=== PATIENT | female | born 1955 | race Caucasian/White ===

== ENCOUNTER 2020-04-02 15:04 | Emergency (ER) | payer OTHER, BC ==
[2020-04-02 15:27] VITALS: BP 195/91; PULSE 79
[2020-04-02] MEDS ORDERED: HYDROmorphone 0.5 MG/0.5 ML Syringe IVPUSH ONE (15:35)
[2020-04-02] MEDS ORDERED: Sodium Chloride 0.9% 10 ML Syringe FLUSH PRN (15:35)
--- NOTE | 2020-04-02 15:47 | EDM.PDOC ---
ED HPI GENERAL MEDICAL PROBLEM - General Chief Complaint: Lower Extremity Injury/Pain Stated Complaint: R LEG PAIN Time Seen by Provider: 04/02/20 15:23 Source of Information: Reports: Patient, Family, RN Notes Reviewed - History of Present Illness INITIAL COMMENTS - FREE TEXT/NARRATIVE: 64 yr old female comes in with severe R posterior thigh discomfort. She was at work, in a crowded space leaning forward to reach for something and felt onset of sudden pain R posterior mid thigh. She continues with severe pain with any type of movement of RLE. Feels OK at rest with knee propped up. No hip or back pain. No other injury. Treatments HERD TESTER: Reports: Cold Therapy Right Posterior Leg Pain Score (Numeric/FACES): 10 - Related Data Allergies Allergy/AdvReac Type Severity Reaction Status Date / Time ibuprofen Allergy Swelling Verified 04/02/20 15:17 Home Meds: Home Meds Enalapril Maleate 20 mg PO DAILY 12/30/14 [History] Multivitamin [Multivitamins] 1 each PO DAILY 12/30/14 [History] Rosuvastatin [Crestor] 15 mg PO DAILY 12/30/14 [History] Zolpidem [Ambien] 10 mg PO BEDTIME PRN 12/30/14 [History] amLODIPine [Norvasc] 5 mg PO DAILY 12/30/14 [History] metFORMIN HCl [Metformin HCl] 1,000 mg PO BID 12/30/14 [History] Cholecalciferol (Vitamin D3) [Vitamin D3] 5,000 unit PO DAILY 03/17/15 [History] Fish Oil/Merlin-3 Fatty Acids [Fish Oil] 03/17/15 [History] traMADol [Ultram] 50 mg PO DAILY PRN 03/17/15 [History] Metoprolol Succinate [Toprol XL] 25 mg PO DAILY 06/24/15 [History] Ondansetron [Zofran ODT] 4 mg PO Q6H PRN #10 tab.dis 06/24/15 [Rx] Escitalopram [Lexapro] 20 mg PO DAILY 04/02/20 [History] glipiZIDE [Glipizide ER] 2.5 mg PO ASDIRECTED 04/02/20 [History] Past Medical History HEENT History: Reports: None Cardiovascular History: Reports: High Cholesterol, Hypertension 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: , Other (See Below) Other NETWORK OPERATIONS ANALYST History: 2 C-sections Musculoskeletal History: Reports: None Endocrine/Metabolic History: Reports: Diabetes, Type II - Past Surgical History HEENT Surgical History: Reports: Cataract Surgery Cardiovascular Surgical History: Reports: None Endocrine Surgical History: Reports: None Musculoskeletal Surgical History: Reports: Other (See Below) Other Musculoskeletal Surgeries/Procedures:: Right Knee Surgery Social & Family History - Family History HEENT: Reports: Cataract Other HEENT Family History: mother Cardiac: Reports: Bypass Other Cardiac Family History: father OBGYN: Reports: Endocrine/Metabolic: Reports: Diabetes, type II Other Endocrine/Metabolic Family History: Mother Oncologic: Reports: Breast Other Oncologic Family History: Sister - Tobacco Use Tobacco Use Status *Q: Former Tobacco User Years of Tobacco use: 20 Packs/Tins Daily: 1.5 Used Tobacco, but Quit: Yes Month/Year Tobacco Last Used: 03/1992 - Caffeine Use Caffeine Use: Reports: Coffee, Soda, Tea - Recreational Drug Use Recreational Drug Use: No Review of Systems - Review of Systems Review Of Systems: See Below Constitutional: Reports: No Symptoms Respiratory: Denies: Shortness of Breath, Pleuritic Chest Pain Cardiovascular: Denies: Chest Pain GI/Abdominal: Denies: Abdominal Pain, Nausea, Vomiting Musculoskeletal: Reports: Leg Pain Skin: Reports: No Symptoms Neurological: Reports: Difficulty Walking. Denies: Numbness, Tingling, Weakness ED EXAM, GENERAL - Physical Exam Exam: See Below General Appearance: Alert, Moderate Distress Head: Atraumatic Neck: Supple Respiratory/Chest: No Respiratory Distress, Lungs Clear Cardiovascular: Regular Rate, Rhythm Extremities: Leg Pain (There is tenderness of the R posterior mid thigh, no visible swelling, proximal distal post thigh nontender, hip and knee nontender) Neurological: No Motor/Sensory Deficits Skin Exam: Warm, Dry, Normal Color Course - Vital Signs Last Recorded V/S: Last Vital Signs Temp 99.1 F 04/02/20 15:18 Pulse 79 04/02/20 15:18 Resp 22 H 04/02/20 15:18 BP 195/91 H 04/02/20 15:18 Pulse Ox 100 04/02/20 15:18 - Orders/Labs/Meds Meds: Medications Discontinued Medications Generic Name Dose Route Start Last Admin Trade Name Freq PRN Reason Stop Dose Admin Hydromorphone HCl 0.5 mg 04/02/20 15:35 04/02/20 15:41 Dilaudid IVPUSH 04/02/20 15:36 0.5 mg ONETIME ONE Administration Sodium Chloride 10 ml 04/02/20 15:35 04/02/20 15:43 Saline Flush FLUSH 10 ml ASDIRECTED PRN Administration Keep Vein Open Departure - Departure Time of Disposition: 17:35 Disposition: Home, Self-Care 01 Condition: Fair Clinical Impression: Right hamstring muscle strain Qualifiers: Encounter type: initial encounter Qualified Code(s): S76.311A - Strain of muscle, fascia and tendon of the posterior muscle group at thigh level, right thigh, initial encounter - Discharge Information Instructions: Hamstring Strain Rehab-SportsMed Referrals: Sandee Diehl CHINCHILLA FARMER [Primary Care Provider] - Forms: ED Department Discharge, ED Return to Work/School Form Additional Instructions: Arik wrap R thigh, continue with rest, ice packs, elevation to help get the swelling down. Tylenol q 6 hr for pain or tylenol 500 mg with 1/2 tablet hydrocodone for more severe pain. Use walker. Follow up clinic later this week. Off work until you can walk with mild discomfort only, expect to take 1 to 2 weeks off work. Sepsis Event Note (ED) - Evaluation Sepsis Screening Result: No Definite Risk
--- NOTE | 2020-04-02 17:06 | MR ---
MRI right femur Technique: Multiple T2 fat-suppressed and T1 weighted axial, coronal and sagittal images were obtained. Findings: Mild edema is noted within portions of the vastus medialis and vastus lateralis muscle. Minimal edema is noted within the distal hamstring muscle. No evidence of muscle tear is seen. There is no bone marrow edema being seen. Small popliteal cyst and small effusion noted within the knee. Impression: 1. Mild areas of edema within the vastus medialis and vastus lateralis muscle as well as within the distal hamstring muscle. Findings are compatible with mild muscle strain. No muscle tear is identified. 2. Small joint effusion within the knee as well as small popliteal cyst. Diagnostic code #2
== END 2020-04-02 18:10 | disposition home or self-care (01) ==
LOC: JD.ED 15:04
DX: S76.311A Strain of muscle, fascia and tendon of the posterior muscle group at thigh level, right thigh, initial encounter (principal); E78.00 Pure hypercholesterolemia, unspecified; I10 Essential (primary) hypertension; E11.9 Type 2 diabetes mellitus without complications; Z87.891 Personal history of nicotine dependence; Z88.6 Allergy status to analgesic agent; Z79.899 Other long term (current) drug therapy; X58.XXXA Exposure to other specified factors, initial encounter; Y92.89 Other specified places as the place of occurrence of the external cause; Y99.0 Civilian activity done for income or pay
CPT/HCPCS: 73718-26-RT; 73718-RT; 96374; 99283; 99283-25; J1170

== ENCOUNTER 2020-10-14 16:01 | Emergency (ER) | payer BC ==
[2020-10-14] MEDS ORDERED: Sodium Chloride 0.9% 10 ML Syringe FLUSH PRN (16:38)
--- NOTE | 2020-10-14 16:53 | EDM.PDOC ---
ED HPI GENERAL MEDICAL PROBLEM - General Chief Complaint: Cardiovascular Problem Stated Complaint: [facility] Time Seen by Provider: 10/14/20 16:08 Source of Information: Reports: Patient History Limitations: Reports: No Limitations - History of Present Illness INITIAL COMMENTS - FREE TEXT/NARRATIVE: 65-year-old female presents the emergency department via [facility]. 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 She then went and sat down and suddenly became nauseated so she went to the bathroom and vomited twice. She states that she continued to have nausea but no further vomiting at that time. She then elected to check her blood pressure and states it was over 180 systolic. She then went to the local ambulance [facility] and had them check her blood pressure which they noted to be greater than 200 systolic. She was then transported to the emergency department. Patient states she does have a history of hypertension and approximately 1 month to 6 weeks ago saw her commercial finance analyst, , who started her on "extended release nitro". She states that her blood pressure has been up and down since then and has been taking prn doses of lisinopril 20mg. She states that at the time of her near syncopal episode she did not have any chest pain or pressure however she did report some shortness of breath. She does admit to having anxiety for which she takes as needed anxiety medication. She does have a history of Covid back in March or April of this year for which she states she has been in a brain fog ever since. She denies any recent fever, chills, abdominal pain or diarrhea. She denies any headache, cough or shortness of breath or flulike symptoms. She denies any urinary symptoms. - Related Data Allergies Allergy/AdvReac Type Severity Reaction Status Date / Time ibuprofen Allergy Swelling Verified 10/14/20 17:46 Home Meds: Home Meds Multivitamin [Multivitamins] 1 each PO DAILY 12/30/14 [History] Rosuvastatin [Crestor] 15 mg PO DAILY 12/30/14 [History] Zolpidem [Ambien] 10 mg PO BEDTIME PRN 12/30/14 [History] amLODIPine [Norvasc] 5 mg PO DAILY 12/30/14 [History] metFORMIN HCl [Metformin HCl] 1,000 mg PO BID 12/30/14 [History] Fish Oil/[place]-3 Fatty Acids [Fish Oil] 1 tab PO DAILY 03/17/15 [History] Escitalopram [Lexapro] 20 mg PO DAILY 04/02/20 [History] glipiZIDE [Glipizide ER] 2.5 mg PO ASDIRECTED 04/02/20 [History] Isosorbide Mononitrate [Isosorbide Mononitrate ER] 30 mg PO DAILY 10/14/20 [History] Montelukast [Singulair] 10 mg PO BID 10/14/20 [History] Omeprazole 20 mg PO DAILY 10/14/20 [History] aMILoride HCl [Amiloride HCl] 5 mg PO DAILY 10/14/20 [History] carvediloL [Carvedilol] 6.25 mg PO DAILY 10/14/20 [History] metFORMIN [Glucophage XR] 500 mg PO 1200 10/14/20 [History] Past Medical History HEENT History: Reports: None Cardiovascular History: Reports: High Cholesterol, Hypertension 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: , Other (See Below) Other HOUSE NURSE History: 2 C-sections Musculoskeletal History: Reports: None Endocrine/Metabolic History: Reports: Diabetes, Type II - Past Surgical History HEENT Surgical History: Reports: Cataract Surgery Cardiovascular Surgical History: Reports: None Endocrine Surgical History: Reports: None Musculoskeletal Surgical History: Reports: Other (See Below) Other Musculoskeletal Surgeries/Procedures:: Right Knee Surgery Social & Family History - Family History HEENT: Reports: Cataract Other HEENT Family History: mother Cardiac: Reports: Bypass Other Cardiac Family History: father OBGYN: Reports: Endocrine/Metabolic: Reports: Diabetes, type II Other Endocrine/Metabolic Family History: Mother Oncologic: Reports: Breast Other Oncologic Family History: Sister - Caffeine Use Caffeine Use: Reports: Coffee, Soda, Tea ED ROS GENERAL - Review of Systems Review Of Systems: Comprehensive ROS is negative, except as noted in HPI. ED EXAM, GENERAL - Physical Exam Exam: See Below Exam Limited By: Other (Patient is slightly confused however she is able to remember events of the day and current medications.) General Appearance: Alert, WD/WN, Mild Distress Eye Exam: Bilateral Eye: PERRL Ears: Normal External Exam, Hearing Grossly Normal Nose: Normal Inspection Throat/Mouth: Normal Inspection, Normal Lips, Normal Voice, No Airway Compromise Head: Atraumatic Neck: Normal Inspection, Supple Respiratory/Chest: No Respiratory Distress, Lungs Clear, Normal Breath Sounds, No Accessory Muscle Use, Chest Non-Tender Cardiovascular: Normal Peripheral Pulses, Regular Rate, Rhythm, No Edema, No Murmur Peripheral Pulses: 2+: Radial (L), Radial (R) GI/Abdominal: Normal Bowel Sounds, Soft, Non-Tender, No Distention (Female) Exam: Deferred Rectal (Female) Exam: Deferred Back Exam: Normal Inspection Extremities: Normal Inspection, Normal Range of Motion, Non-Tender, No Pedal Edema, Normal Capillary Refill Neurological: Alert, Oriented, Normal Cognition Psychiatric: Normal Affect, Normal Mood Skin Exam: Warm, Intact, Normal Color, No Rash, Diaphoretic Lymphatic: No Adenopathy #1 Interpretation EKG Date: 10/14/20 Time: 16:17 Rhythm: NSR Rate (Beats/Min): 69 Vida: Normal P-Wave: Present QRS: Normal ST-T: Normal QT: Normal EKG Interpretation Comments: Per Dr. Woods interpretation: Sinus rhythm at 69 bpm. Course - Vital Signs Text/Narrative:: As stated above patient did have an episode of diaphoresis, nausea, vomiting and shortness of breath that occurred while she was vacuuming today. She then proceeded [facility] the local ambulance [facility] and had her blood pressure checked and was subsequently transported here to the emergency department. Once in the emergency department the patient does have continued nausea. The patient does seem quite anxious upon my physical exam. Systolic blood pressure is 170. She states she has not taken her p.m. medications for blood pressure which she normally takes at about 4:30 in the afternoon. I have ordered for nursing staff to obtain her full medication list to evaluate. I have ordered an EKG, labs to include a CBC, CMP, magnesium, troponin, proBNP, TSH, D-dimer and a portable chest x-ray. Last Recorded V/S: Last Vital Signs Temp 98 F 10/14/20 17:20 Pulse 80 10/14/20 18:51 Resp 17 10/14/20 18:51 BP 166/84 H 10/14/20 18:51 Pulse Ox 99 10/14/20 18:51 - Orders/Labs/Meds Orders: Active Orders 24 hr Category Date Time Status EKG 12 Lead [EKG Documentation Completion] [RC] STAT Care 10/14/20 16:10 Active Chest 1V Frontal [CR] Stat Exams 10/14/20 16:38 Taken CORONAVIRUS COVID-19 DENISSE [MOLEC] Stat Lab 10/14/20 18:06 Received CULTURE URINE [MREF] Stat Lab 10/14/20 18:45 Received Sodium Chloride 0.9% [Normal Saline] 100 ml Med 10/14/20 18:00 Active IV ASDIRECTED Sodium Chloride 0.9% [Saline Flush] Med 10/14/20 18:00 Active 10 ml FLUSH ASDIRECTED Sodium Chloride 0.9% [Saline Flush] Med 10/14/20 16:38 Active 10 ml FLUSH ASDIRECTED PRN Saline Lock Insert [OM.PC] Stat Oth 10/14/20 16:38 Ordered Medication Orders Sodium Chloride (Normal Saline) 100 mls @ 60 mls/hr IV ASDIRECTED CAEASR Last Admin: 10/14/20 18:28 Dose: 60 mls/hr Documented by: PALMA Sodium Chloride (Sodium Chloride 0.9% 10 Ml Syringe) 10 ml FLUSH ASDIRECTED PRN PRN Reason: Keep Vein Open Last Admin: 10/14/20 16:44 Dose: 10 ml Documented by: FLORENTINO Sodium Chloride (Sodium Chloride 0.9% 10 Ml Syringe) 10 ml FLUSH ASDIRECTED CAESAR Last Admin: 10/14/20 18:28 Dose: 10 ml Documented by: PALMA Labs: Laboratory Tests 10/14/20 10/14/20 10/14/20 Range/Units 17:05 17:05 17:05 WBC 7.19 (3.98-10.04) K/mm3 RBC 4.17 (3.98-5.22) M/mm3 Hgb 12.1 (11.2-15.7) gm/dl Hct 34.9 (34.1-44.9) % MCV 83.7 D (79.4-94.8) fl MCH 29.0 (25.6-32.2) pg MCHC 34.7 (32.2-35.5) g/dl RDW Std Deviation 40.9 (36.4-46.3) fL Plt Count 313 (182-369) K/mm3 MPV 8.7 L (9.4-12.3) fl Neut % (Auto) 78.8 H (34.0-71.1) % Lymph % (Auto) 14.3 L (19.3-51.7) % [place] % (Auto) 5.4 (4.7-12.5) % Eos % (Auto) 1.0 (0.7-5.8) Baso % (Auto) 0.1 (0.1-1.2) % Neut # (Auto) 5.66 (1.56-6.13) K/mm3 Lymph # (Auto) 1.03 L (1.18-3.74) K/mm3 [place] # (Auto) 0.39 H (0.24-0.36) K/mm3 Eos # (Auto) 0.07 (0.04-0.36) K/mm3 Baso # (Auto) 0.01 (0.01-0.08) K/mm3 D-Dimer, Quantitative 0.96 H (0.19-0.50) mg/L Sodium 114 L* D (136-145) mEq/L Potassium 6.3 H* D (3.5-5.1) mEq/L Chloride 83 L D (98-107) mEq/L Carbon Dioxide 19 L (21-32) mEq/L Anion Gap 18.3 H (5-15) BUN 19 H (7-18) mg/dL Creatinine 0.8 (0.55-1.02) mg/dL Est Cr Clr Drug Dosing 58.77 mL/min Estimated GFR (MDRD) > 60 (>60) mL/min BUN/Creatinine Ratio 23.8 H (14-18) Glucose 164 H (70-99) mg/dL Calcium 9.2 (8.5-10.1) mg/dL Magnesium 1.6 L (1.8-2.4) mg/dL Total Bilirubin 0.4 (0.2-1.0) mg/dL AST 20 (15-37) U/L ALT 32 (14-59) U/L Alkaline Phosphatase 62 (46-116) U/L Troponin I < 0.017 (0.00-0.056) ng/mL NT-Pro-B Natriuret Pep (0-125) pg/mL Total Protein 7.5 (6.4-8.2) g/dl Albumin 4.3 (3.4-5.0) g/dl Globulin 3.2 gm/dL Albumin/Globulin Ratio 1.3 (1-2) TSH 3rd Generation 2.871 (0.358-3.74) uIU/mL Urine Color (Yellow) Urine Appearance (Clear) Urine pH (5.0-8.0) Ur Specific [place] (1.005-1.030) Urine Protein (Negative) Urine Glucose (UA) (Negative) Urine Ketones (Negative) Urine Occult Blood (Negative) Urine Nitrite (Negative) Urine Bilirubin (Negative) Urine Urobilinogen (0.2-1.0) Ur Leukocyte Esterase (Negative) Urine RBC (0-5) /hpf Urine WBC (0-5) /hpf Ur Squamous Epith Cells (0-5) /hpf Urine Bacteria (FEW) /hpf Urine Mucus (FEW) /hpf 10/14/20 10/14/20 Range/Units 17:05 18:45 WBC (3.98-10.04) K/mm3 RBC (3.98-5.22) M/mm3 Hgb (11.2-15.7) gm/dl Hct (34.1-44.9) % MCV (79.4-94.8) fl MCH (25.6-32.2) pg MCHC (32.2-35.5) g/dl RDW Std Deviation (36.4-46.3) fL Plt Count (182-369) K/mm3 MPV (9.4-12.3) fl Neut % (Auto) (34.0-71.1) % Lymph % (Auto) (19.3-51.7) % [place] % (Auto) (4.7-12.5) % Eos % (Auto) (0.7-5.8) Baso % (Auto) (0.1-1.2) % Neut # (Auto) (1.56-6.13) K/mm3 Lymph # (Auto) (1.18-3.74) K/mm3 [place] # (Auto) (0.24-0.36) K/mm3 Eos # (Auto) (0.04-0.36) K/mm3 Baso # (Auto) (0.01-0.08) K/mm3 D-Dimer, Quantitative (0.19-0.50) mg/L Sodium (136-145) mEq/L Potassium (3.5-5.1) mEq/L Chloride (98-107) mEq/L Carbon Dioxide (21-32) mEq/L Anion Gap (5-15) BUN (7-18) mg/dL Creatinine (0.55-1.02) mg/dL Est Cr Clr Drug Dosing mL/min Estimated GFR (MDRD) (>60) mL/min BUN/Creatinine Ratio (14-18) Glucose (70-99) mg/dL Calcium (8.5-10.1) mg/dL Magnesium (1.8-2.4) mg/dL Total Bilirubin (0.2-1.0) mg/dL AST (15-37) U/L ALT (14-59) U/L Alkaline Phosphatase (46-116) U/L Troponin I (0.00-0.056) ng/mL NT-Pro-B Natriuret Pep 46 (0-125) pg/mL Total Protein (6.4-8.2) g/dl Albumin (3.4-5.0) g/dl Globulin gm/dL Albumin/Globulin Ratio (1-2) TSH 3rd Generation (0.358-3.74) uIU/mL Urine Color Yellow (Yellow) Urine Appearance Clear (Clear) Urine pH 7.5 (5.0-8.0) Ur Specific [place] 1.015 (1.005-1.030) Urine Protein Negative (Negative) Urine Glucose (UA) Negative (Negative) Urine Ketones 2+ H (Negative) Urine Occult Blood Negative (Negative) Urine Nitrite Negative (Negative) Urine Bilirubin Negative (Negative) Urine Urobilinogen 0.2 (0.2-1.0) Ur Leukocyte Esterase Trace H (Negative) Urine RBC 0-5 (0-5) /hpf Urine WBC 5-10 H (0-5) /hpf Ur Squamous Epith Cells 0-5 (0-5) /hpf Urine Bacteria Few (FEW) /hpf Urine Mucus Few (FEW) /hpf Meds: Medications Generic Name Dose Route Start Last Admin Trade Name Freq PRN Reason Stop Dose Admin Sodium Chloride 100 mls @ 60 mls/hr 10/14/20 18:00 10/14/20 18:28 Normal Saline IV 60 mls/hr ASDIRECTED CAESAR Administration Sodium Chloride 10 ml 10/14/20 16:38 10/14/20 16:44 Sodium Chloride 0.9% 10 Ml Syringe FLUSH 10 ml ASDIRECTED PRN Administration Keep Vein Open Sodium Chloride 10 ml 10/14/20 18:00 10/14/20 18:28 Sodium Chloride 0.9% 10 Ml Syringe FLUSH 10 ml ASDIRECTED CAESAR Administration Discontinued Medications Generic Name Dose Route Start Last Admin Trade Name Hayden PRN Reason Stop Dose Admin Sodium Chloride 1,000 mls @ 999 mls/hr 10/14/20 17:53 10/14/20 18:01 Normal Saline IV 10/14/20 18:53 999 mls/hr ONETIME ONE Administration Iopamidol 100 ml 10/14/20 17:57 10/14/20 18:27 Iopamidol 755 Mg/Ml 100 Ml Bottle IVPUSH 10/14/20 17:58 100 ml ONETIME ONE Administration Iopamidol 50 ml 10/14/20 17:57 10/14/20 18:32 Iopamidol 755 Mg/Ml 50 Ml Bottle IVPUSH 10/14/20 17:58 Not Given ONETIME ONE - Re-Assessments/Exams Free Text/Narrative Re-Assessment/Exam: 10/14/20 17:25 Patient's blood pressure 143/79, heart rate is 69 sinus rhythm. 10/14/20 18:02 Hematology reveals a WBC of 7.19, hemoglobin 12.1, hematocrit 34.9, platelet count 313 Coagulation reveals a D-dimer of 0.96 Chemistry reveals a sodium of 114, potassium 6.3, chloride 83, carbon dioxide 19, anion gap 18.3, BUN 19, creatinine 0.8, GFR greater than 60, glucose 164, calcium 9.2, magnesium 1.6, troponin less than 0.017, proBNP 46, TSH 2.871 Patient's D-dimer is elevated so I ordered a CT of the chest to rule out PE. Consulted with Dr. Woods guarding the patient's lab work and he recommends the patient received a 1 L bolus of normal saline IV. Patient will need to be hospitalized due to the hyponatremia and hyperkalemia however we have no beds available at this hospital. Discussed the case with the patient and her and they request to be transferred to [facility] in [place]. Once I have the results of the CTA I will call [facility]. 10/14/20 18:05 Calcium corrected for serum sodium is 115 mEq/L 10/14/20 18:38 Nothing acute is appreciated on portable view of the chest. 10/14/20 19:[address] of the chest: Pulmonary arteries are well opacified. No filling defects are seen to indicate pulmonary embolism. Soft tissue abnormality is identified in the right side of the left atrium. This finding measures approximately 2.4 x 1.4 cm. This represents either thrombus or soft tissue mass. Thoracic aorta shows atherosclerotic change. A sending aorta is slightly ecstatic with AP dimension of 3.6 cm. There is coronary artery calcification being seen. No pericardial thickening is noted. Mediastinum shows no adenopathy. No axillary adenopathy is seen. Visualized upper abdominal structures show nothing acute. Lung window settings were reviewed. No acute parenchymal process is seen. Bone window settings were reviewed. No acute osseous abnormality is appreciated I have called [facility] in [place] and spoken with Dr. Gasca, specialist and she has accepted care of the patient in transfer. Patient will be transferred via ambulance. Departure - Departure Time of Disposition: 19:40 Disposition: DC/Tfer to [facility] 02 Reason for Transfer *Q: Other Condition: Fair Clinical Impression: Hyponatremia, Hyperkalemia Referrals: Sandee Diehl AUTOMATION QA ANALYST [Primary Care Provider] - Forms: ED Department Discharge Sepsis Event Note (ED) - Evaluation Sepsis Screening Result: No Definite Risk - Focused Exam Vital Signs: Vital Signs Temp Pulse Resp BP BP Pulse Ox 10/14/20 18:51 80 17 166/84 H 99 10/14/20 18:00 71 23 H 153/81 H 96 10/14/20 17:20 98 F 68 20 143/79 H 100 10/14/20 16:10 18 - My Orders Last 24 Hours: My Active Orders 10/14/20 16:10 EKG 12 Lead [EKG Documentation Completion] [RC] STAT 10/14/20 16:38 Chest 1V Frontal [CR] Stat Sodium Chloride 0.9% [Saline Flush] 10 ml FLUSH ASDIRECTED PRN Saline Lock Insert [OM.PC] Stat 10/14/20 18:00 Sodium Chloride 0.9% [Normal Saline] 100 ml IV ASDIRECTED Sodium Chloride 0.9% [Saline Flush] 10 ml FLUSH ASDIRECTED 10/14/20 18:06 CORONAVIRUS COVID-19 DENISSE [MOLEC] Stat 10/14/20 18:45 CULTURE URINE [MREF] Stat - Assessment/Plan Last 24 Hours: My Active Orders 10/14/20 16:10 EKG 12 Lead [EKG Documentation Completion] [RC] STAT 10/14/20 16:38 Chest 1V Frontal [CR] Stat Sodium Chloride 0.9% [Saline Flush] 10 ml FLUSH ASDIRECTED PRN Saline Lock Insert [OM.PC] Stat 10/14/20 18:00 Sodium Chloride 0.9% [Normal Saline] 100 ml IV ASDIRECTED Sodium Chloride 0.9% [Saline Flush] 10 ml FLUSH ASDIRECTED 10/14/20 18:06 CORONAVIRUS COVID-19 DENISSE [MOLEC] Stat 10/14/20 18:45 CULTURE URINE [MREF] Stat
[2020-10-14] MEDS ORDERED: Sodium Chloride 0.9% 1,000 ML IV ONE (17:53)
[2020-10-14] MEDS ORDERED: Iopamidol 755 Mg/ML 100 ML Bottle IVPUSH ONE (17:57)
[2020-10-14] MEDS ORDERED: Iopamidol 755 MG/ML 50 ML Bottle IVPUSH ONE (17:57)
[2020-10-14] MEDS ORDERED: Sodium Chloride 0.9% 100 ML IV SCH (18:00)
[2020-10-14] MEDS ORDERED: Sodium Chloride 0.9% 10 ML Syringe FLUSH SCH (18:00)
--- NOTE | 2020-10-14 18:54 | CT ---
CT chest Technique: Multiple axial sections through the chest were obtained. Intravenous contrast was utilized. Study has been performed as a pulmonary angiogram protocol. Comparison: No prior chest CT is available, prior chest x-ray of 06/24/15 is available. Findings: Pulmonary arteries are well opacified. No filling defects are seen to indicate pulmonary embolism. Soft tissue abnormality is identified within the right side of the left atrium. This finding measures approximately 2.4 x 1.4 cm. This represent either a thrombus or soft tissue mass. Thoracic aorta shows atherosclerotic change. Ascending aorta is slightly ectatic with AP dimension 3.6 cm. There is coronary artery calcification being seen. No pericardial thickening is noted. Mediastinum shows no adenopathy. No axillary adenopathy is seen. Visualized upper abdominal structures show nothing acute. Lung window settings were reviewed. No acute parenchymal process is seen. Bone window settings were reviewed. No acute osseous abnormality is appreciated. Impression: 1. Finding within the right side of the left atrium measuring 2.4 x 1.4 cm. This represents either a thrombus or soft tissue mass. Transesophageal echocardiogram could be considered to further evaluate. 2. No findings of pulmonary embolism. 3. Coronary artery calcification is noted. Ectasia of the ascending aorta is noted. 4. No acute parenchymal process is seen within either lung. Diagnostic code #5
[2020-10-14 19:32] VITALS: BP 173/89; PULSE 81
--- NOTE | 2020-10-15 09:04 | CR ---
Chest: Portable view of the chest was obtained. Comparison: Prior chest x-ray of 06/24/15. Heart size and mediastinum are within normal limits. Lungs are clear with no acute parenchymal change. No acute osseous abnormality is appreciated. Impression: 1. Nothing acute is seen on portable chest x-ray. Diagnostic code #1
== END 2020-10-14 19:44 ==
LOC: JD.ED 16:01
DX: E87.1 Hypo-osmolality and hyponatremia (principal); E87.5 Hyperkalemia; I10 Essential (primary) hypertension; E11.8 Type 2 diabetes mellitus with unspecified complications; E78.00 Pure hypercholesterolemia, unspecified; Z88.6 Allergy status to analgesic agent; Z20.822 Contact with and (suspected) exposure to COVID-19
CPT/HCPCS: 36415; 71045; 71275; 80053; 81001; 83735; 83880; 84443; 84484; 85025; 85379; 87086; 87635; 93005; 99285; J7030; Q9967; 93010; U0002

== ENCOUNTER 2020-11-06 09:13 | Emergency (ER) | payer BC ==
[2020-11-06] MEDS ORDERED: Sodium Chloride 0.9% 10 ML Syringe FLUSH PRN ×2 (09:37→11:36)
[2020-11-06] MEDS ORDERED: LORazepam 0.5 MG Tab PO ONE (11:17)
[2020-11-06] MEDS ORDERED: Iopamidol 755 Mg/ML 100 ML Bottle IVPUSH ONE (11:36)
[2020-11-06] MEDS ORDERED: Sodium Chloride 0.9% 100 ML IV SCH (11:45)
--- NOTE | 2020-11-06 12:29 | EDM.PDOC ---
ED HPI GENERAL MEDICAL PROBLEM - General Chief Complaint: General Stated Complaint: PASCUAL GUERRA Time Seen by Provider: 11/06/20 09:16 Source of Information: Reports: Patient, EMS, Family History Limitations: Reports: No Limitations - History of Present Illness INITIAL COMMENTS - FREE TEXT/NARRATIVE: The patient presents by [facility] for confusion, shortness of breath and hallucinations. 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 She was sent to [facility] and had surgery done 1 week ago. She was discharged home on oxygen at 3L. She was not on oxygen before the surgery. She had some trouble with her CPAP through the night and took her oxygen off. She was found this morning in another room in the house and had a trail of cereal. She was trying to get a bowl of cereal. She was confused and was wondering why the children were not helping. There are no children in the house. She also was wondering why there was a dog in the house. They do not have a dog. She was also popping bubbles that were not there last night. EMS said her oxygen saturations were low in the 80s and put her on some oxygen. She is doing better on the oxygen. She has no fever, chills, cough, abdominal pain, nausea or vomiting. She does have chest pain when she coughs. She has some swelling in her legs. She was just discharged form the hospital 2 days ago. Onset: Gradual Duration: Day(s): (yesterday) Location: Reports: Chest Quality: Reports: Sharp Severity: Moderate Improves with: Reports: Immobilization Worsens with: Reports: Other (cough) Associated Symptoms: Reports: Chest Pain, Cough, Shortness of Breath. Denies: Fever/Chills, Headaches, Nausea/Vomiting Middle Chest Pain Score (Numeric/FACES): 7 - Related Data Allergies Allergy/AdvReac Type Severity Reaction Status Date / Time ibuprofen Allergy Swelling Verified 10/14/20 17:46 metoprolol Allergy Edema Verified 11/06/20 09:41 Home Meds: Home Meds Multivitamin [Multivitamins] 1 each PO DAILY 12/30/14 [History] Rosuvastatin [Crestor] 15 mg PO DAILY 12/30/14 [History] Zolpidem [Ambien] 10 mg PO BEDTIME PRN 12/30/14 [History] amLODIPine [Norvasc] 5 mg PO DAILY 12/30/14 [History] metFORMIN HCl [Metformin HCl] 1,000 mg PO BID 12/30/14 [History] Fish Oil/Cornelius-3 Fatty Acids [Fish Oil] 1 tab PO DAILY 03/17/15 [History] Escitalopram [Lexapro] 20 mg PO DAILY 04/02/20 [History] glipiZIDE [Glipizide ER] 2.5 mg PO ASDIRECTED 04/02/20 [History] Isosorbide Mononitrate [Isosorbide Mononitrate ER] 30 mg PO DAILY 10/14/20 [History] Montelukast [Singulair] 10 mg PO BID 10/14/20 [History] Omeprazole 20 mg PO DAILY 10/14/20 [History] aMILoride HCl [Amiloride HCl] 5 mg PO DAILY 10/14/20 [History] carvediloL [Carvedilol] 6.25 mg PO DAILY 10/14/20 [History] metFORMIN [Glucophage XR] 500 mg PO 1200 10/14/20 [History] Past Medical History HEENT History: Reports: None Cardiovascular History: Reports: High Cholesterol, Hypertension 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: , Other (See Below) Other FLEET MAINTENANCE MANAGER History: 2 C-sections Musculoskeletal History: Reports: None Neurological History: Reports: TIA Other Neuro History: mini stroke 3 years ago Psychiatric History: Reports: None Endocrine/Metabolic History: Reports: Diabetes, Type II Hematologic History: Reports: Iron Deficiency - Past Surgical History HEENT Surgical History: Reports: Cataract Surgery Cardiovascular Surgical History: Reports: Other (See Below) Other Cardiovascular Surgeries/Procedures: 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 GI Surgical History: Reports: Appendectomy Endocrine Surgical History: Reports: None Musculoskeletal Surgical History: Reports: Other (See Below) Other Musculoskeletal Surgeries/Procedures:: Right Knee Surgery Social & Family History - Family History HEENT: Reports: Cataract Other HEENT Family History: mother Cardiac: Reports: Bypass Other Cardiac Family History: father OBGYN: Reports: Endocrine/Metabolic: Reports: Diabetes, type II Other Endocrine/Metabolic Family History: Mother Oncologic: Reports: Breast Other Oncologic Family History: Sister - Tobacco Use Tobacco Use Status *Q: Never Tobacco User - Caffeine Use Caffeine Use: Reports: None - Recreational Drug Use Recreational Drug Use: No ED ROS GENERAL - Review of Systems Review Of Systems: See Below Constitutional: Reports: No Symptoms HEENT: Reports: No Symptoms Respiratory: Reports: Shortness of Breath, Cough Cardiovascular: Reports: Chest Pain Endocrine: Reports: No Symptoms GI/Abdominal: Reports: No Symptoms : Reports: No Symptoms Musculoskeletal: Reports: No Symptoms ED EXAM, GENERAL - Physical Exam Exam: See Below Exam Limited By: No Limitations General Appearance: Alert, No Apparent Distress Ears: Normal External Exam Nose: Normal Inspection Head: Atraumatic, Normocephalic Neck: Normal Inspection, Other (Scar through the middle of the chest. There is no erythema, edema, or drainage.) Respiratory/Chest: No Respiratory Distress, Lungs Clear, Normal Breath Sounds Cardiovascular: Regular Rate, Rhythm, No Edema, No Murmur GI/Abdominal: Soft, Non-Tender, No Organomegaly, No Mass Back Exam: Normal Inspection Extremities: Normal Inspection #1 Interpretation EKG Date: 11/06/20 Time: 09:50 Rhythm: Other (sinus tachycardia) Rate (Beats/Min): 119 [place]: Normal P-Wave: Present QRS: Normal ST-T: Normal QT: Normal Course - Vital Signs Last Recorded V/S: Last Vital Signs Temp 97.4 F 11/06/20 09:16 Pulse 120 H 11/06/20 09:16 Resp 24 H 11/06/20 09:16 BP 173/103 H 11/06/20 09:16 Pulse Ox 94 L 11/06/20 09:16 - Orders/Labs/Meds Orders: Active Orders 24 hr Category Date Time Status Cardiac Monitoring [RC] . DIRECTED Care 11/06/20 09:37 Active Oxygen Therapy [RC] PRN Care 11/06/20 09:37 Active Peripheral IV Care [RC] . DIRECTED Care 11/06/20 09:38 Active Ang Chest [CT] Stat Exams 11/06/20 11:27 Taken Chest 1V Frontal [CR] Stat Exams 11/06/20 09:38 Taken Head wo Cont [CT] Stat Exams 11/06/20 11:26 Taken BLOOD CULTURE [MREF] Stat Lab 11/06/20 10:16 Received BLOOD CULTURE [MREF] Stat Lab 11/06/20 10:26 Received Sodium Chloride 0.9% [Normal Saline] 100 ml Med 11/06/20 11:45 Active IV ASDIRECTED Sodium Chloride 0.9% [Saline Flush] Med 11/06/20 09:37 Active 10 ml FLUSH ASDIRECTED PRN Sodium Chloride 0.9% [Saline Flush] Med 11/06/20 11:36 Active 10 ml FLUSH ONETIME PRN Blood Culture x2 Reflex Set [OM.PC] Stat Ot 11/06/20 09:58 Ordered Peripheral IV Insertion Adult [OM.PC] Stat Ot 11/06/20 09:37 Ordered Medication Orders Sodium Chloride (Normal Saline) 100 mls @ 60 mls/hr IV ASDIRECTED CAESAR Last Admin: 11/06/20 12:21 Dose: 60 mls/hr Documented by: DILAN Sodium Chloride (Sodium Chloride 0.9% 10 Ml Syringe) 10 ml FLUSH ASDIRECTED PRN PRN Reason: Keep Vein Open Last Admin: 11/06/20 10:17 Dose: 10 ml Documented by: RADHA Sodium Chloride (Sodium Chloride 0.9% 10 Ml Syringe) 10 ml FLUSH ONETIME PRN PRN Reason: Keep Vein Open Last Admin: 11/06/20 12:21 Dose: 10 ml Documented by: DILAN Labs: Laboratory Tests 11/06/20 11/06/20 11/06/20 Range/Units 09:37 10:13 10:16 WBC 9.56 (3.98-10.04) K/mm3 RBC 2.87 L (3.98-5.22) M/mm3 Hgb 8.3 L D (11.2-15.7) gm/dl Hct 27.2 L (34.1-44.9) % MCV 94.8 D (79.4-94.8) fl MCH 28.9 (25.6-32.2) pg MCHC 30.5 L (32.2-35.5) g/dl RDW Std Deviation 48.0 H (36.4-46.3) fL Plt Count 364 (182-369) K/mm3 MPV 8.7 L (9.4-12.3) fl Neut % (Auto) 82.5 H (34.0-71.1) % Lymph % (Auto) 10.8 L (19.3-51.7) % [place] % (Auto) 6.0 (4.7-12.5) % Eos % (Auto) 0.1 L (0.7-5.8) Baso % (Auto) 0.1 (0.1-1.2) % Neut # (Auto) 7.89 H (1.56-6.13) K/mm3 Lymph # (Auto) 1.03 L (1.18-3.74) K/mm3 [place] # (Auto) 0.57 H (0.24-0.36) K/mm3 Eos # (Auto) 0.01 L (0.04-0.36) K/mm3 Baso # (Auto) 0.01 (0.01-0.08) K/mm3 PT (9.7-12.0) SECONDS INR APTT (21.7-31.4) SECONDS Puncture Site ABG pH (7.35-7.45) ABG pCO2 (35.0-45.0) mmHg ABG pO2 (80.0-100.0) mmHg ABG HCO3 (22.0-26.0) meq/L ABG O2 Saturation (96.0-97.0) % ABG Base Excess (-2-2.0) Prakash Test A-a Gradient mmHg O2 Delivery Device Oxygen Flow Rate FiO2 (21.00-100.00) % Sodium (136-145) mEq/L Potassium (3.5-5.1) mEq/L Chloride (98-107) mEq/L Carbon Dioxide (21-32) mEq/L Anion Gap (5-15) BUN (7-18) mg/dL Creatinine (0.55-1.02) mg/dL Est Cr Clr Drug Dosing mL/min Estimated GFR (MDRD) (>60) mL/min BUN/Creatinine Ratio (14-18) Glucose (70-99) mg/dL Serum Osmolality (280-300) mosm/kg Lactic Acid (0.4-2.0) mmol/L Calcium (8.5-10.1) mg/dL Magnesium (1.8-2.4) mg/dL Total Bilirubin (0.2-1.0) mg/dL AST (15-37) U/L ALT (14-59) U/L Alkaline Phosphatase (46-116) U/L Troponin I (0.00-0.056) ng/mL C-Reactive Protein (<1.0) mg/dL NT-Pro-B Natriuret Pep (0-125) pg/mL Total Protein (6.4-8.2) g/dl Albumin (3.4-5.0) g/dl Globulin gm/dL Albumin/Globulin Ratio (1-2) Urine Color Yellow (Yellow) Urine Appearance Clear (Clear) Urine pH 6.0 (5.0-8.0) Ur Specific Eva 1.015 (1.005-1.030) Urine Protein Negative (Negative) Urine Glucose (UA) 3+ H (Negative) Urine Ketones Negative (Negative) Urine Occult Blood Negative (Negative) Urine Nitrite Negative (Negative) Urine Bilirubin Negative (Negative) Urine Urobilinogen 0.2 (0.2-1.0) Ur Leukocyte Esterase Negative (Negative) Urine RBC 0-5 (0-5) /hpf Urine WBC Not seen (0-5) /hpf Ur Squamous Epith Cells 0-5 (0-5) /hpf Urine Bacteria Rare (FEW) /hpf Urine Mucus Not seen (FEW) /hpf Ketones (0.0-0.3) mM SARS-CoV-2 RNA (DENISSE) Negative (NEGATIVE) 11/06/20 11/06/20 11/06/20 Range/Units 10:16 10:16 10:16 WBC (3.98-10.04) K/mm3 RBC (3.98-5.22) M/mm3 Hgb (11.2-15.7) gm/dl Hct (34.1-44.9) % MCV (79.4-94.8) fl MCH (25.6-32.2) pg MCHC (32.2-35.5) g/dl RDW Std Deviation (36.4-46.3) fL Plt Count (182-369) K/mm3 MPV (9.4-12.3) fl Neut % (Auto) (34.0-71.1) % Lymph % (Auto) (19.3-51.7) % [place] % (Auto) (4.7-12.5) % Eos % (Auto) (0.7-5.8) Baso % (Auto) (0.1-1.2) % Neut # (Auto) (1.56-6.13) K/mm3 Lymph # (Auto) (1.18-3.74) K/mm3 [place] # (Auto) (0.24-0.36) K/mm3 Eos # (Auto) (0.04-0.36) K/mm3 Baso # (Auto) (0.01-0.08) K/mm3 PT 10.8 (9.7-12.0) SECONDS INR 1.01 APTT 26.2 (21.7-31.4) SECONDS Puncture Site ABG pH (7.35-7.45) ABG pCO2 (35.0-45.0) mmHg ABG pO2 (80.0-100.0) mmHg ABG HCO3 (22.0-26.0) meq/L ABG O2 Saturation (96.0-97.0) % ABG Base Excess (-2-2.0) Prakash Test A-a Gradient mmHg O2 Delivery Device Oxygen Flow Rate FiO2 (21.00-100.00) % Sodium 136 (136-145) mEq/L Potassium 4.5 (3.5-5.1) mEq/L Chloride 100 (98-107) mEq/L Carbon Dioxide 23 (21-32) mEq/L Anion Gap 17.5 H (5-15) BUN 12 (7-18) mg/dL Creatinine 1.0 (0.55-1.02) mg/dL Est Cr Clr Drug Dosing 47.01 mL/min Estimated GFR (MDRD) 56 (>60) mL/min BUN/Creatinine Ratio 12.0 L (14-18) Glucose 318 H (70-99) mg/dL Serum Osmolality 291 (280-300) mosm/kg Lactic Acid (0.4-2.0) mmol/L Calcium 8.8 (8.5-10.1) mg/dL Magnesium 1.5 L (1.8-2.4) mg/dL Total Bilirubin 0.3 (0.2-1.0) mg/dL AST 27 (15-37) U/L ALT 48 (14-59) U/L Alkaline Phosphatase 121 H (46-116) U/L Troponin I 0.365 H* (0.00-0.056) ng/mL C-Reactive Protein 3.6 H* (<1.0) mg/dL NT-Pro-B Natriuret Pep 2816 H (0-125) pg/mL Total Protein 6.5 (6.4-8.2) g/dl Albumin 3.2 L (3.4-5.0) g/dl Globulin 3.3 gm/dL Albumin/Globulin Ratio 1.0 (1-2) Urine Color (Yellow) Urine Appearance (Clear) Urine pH (5.0-8.0) Ur Specific Eva (1.005-1.030) Urine Protein (Negative) Urine Glucose (UA) (Negative) Urine Ketones (Negative) Urine Occult Blood (Negative) Urine Nitrite (Negative) Urine Bilirubin (Negative) Urine Urobilinogen (0.2-1.0) Ur Leukocyte Esterase (Negative) Urine RBC (0-5) /hpf Urine WBC (0-5) /hpf Ur Squamous Epith Cells (0-5) /hpf Urine Bacteria (FEW) /hpf Urine Mucus (FEW) /hpf Ketones (0.0-0.3) mM SARS-CoV-2 RNA (DENISSE) (NEGATIVE) 11/06/20 11/06/20 11/06/20 Range/Units 10:16 10:16 10:38 WBC (3.98-10.04) K/mm3 RBC (3.98-5.22) M/mm3 Hgb (11.2-15.7) gm/dl Hct (34.1-44.9) % MCV (79.4-94.8) fl MCH (25.6-32.2) pg MCHC (32.2-35.5) g/dl RDW Std Deviation (36.4-46.3) fL Plt Count (182-369) K/mm3 MPV (9.4-12.3) fl Neut % (Auto) (34.0-71.1) % Lymph % (Auto) (19.3-51.7) % [place] % (Auto) (4.7-12.5) % Eos % (Auto) (0.7-5.8) Baso % (Auto) (0.1-1.2) % Neut # (Auto) (1.56-6.13) K/mm3 Lymph # (Auto) (1.18-3.74) K/mm3 [place] # (Auto) (0.24-0.36) K/mm3 Eos # (Auto) (0.04-0.36) K/mm3 Baso # (Auto) (0.01-0.08) K/mm3 PT (9.7-12.0) SECONDS INR APTT (21.7-31.4) SECONDS Puncture Site Rt radial ABG pH 7.48 H (7.35-7.45) ABG pCO2 28.5 L (35.0-45.0) mmHg ABG pO2 60.0 L (80.0-100.0) mmHg ABG HCO3 20.9 L (22.0-26.0) meq/L ABG O2 Saturation 91.3 L (96.0-97.0) % ABG Base Excess -1.8 (-2-2.0) Prakash Test Positive A-a Gradient 119 mmHg O2 Delivery Device Nasal cannula Oxygen Flow Rate 2.5 FiO2 30.00 (21.00-100.00) % Sodium (136-145) mEq/L Potassium (3.5-5.1) mEq/L Chloride (98-107) mEq/L Carbon Dioxide (21-32) mEq/L Anion Gap (5-15) BUN (7-18) mg/dL Creatinine (0.55-1.02) mg/dL Est Cr Clr Drug Dosing mL/min Estimated GFR (MDRD) (>60) mL/min BUN/Creatinine Ratio (14-18) Glucose (70-99) mg/dL Serum Osmolality (280-300) mosm/kg Lactic Acid 3.2 H* (0.4-2.0) mmol/L Calcium (8.5-10.1) mg/dL Magnesium (1.8-2.4) mg/dL Total Bilirubin (0.2-1.0) mg/dL AST (15-37) U/L ALT (14-59) U/L Alkaline Phosphatase (46-116) U/L Troponin I (0.00-0.056) ng/mL C-Reactive Protein (<1.0) mg/dL NT-Pro-B Natriuret Pep (0-125) pg/mL Total Protein (6.4-8.2) g/dl Albumin (3.4-5.0) g/dl Globulin gm/dL Albumin/Globulin Ratio (1-2) Urine Color (Yellow) Urine Appearance (Clear) Urine pH (5.0-8.0) Ur Specific Eva (1.005-1.030) Urine Protein (Negative) Urine Glucose (UA) (Negative) Urine Ketones (Negative) Urine Occult Blood (Negative) Urine Nitrite (Negative) Urine Bilirubin (Negative) Urine Urobilinogen (0.2-1.0) Ur Leukocyte Esterase (Negative) Urine RBC (0-5) /hpf Urine WBC (0-5) /hpf Ur Squamous Epith Cells (0-5) /hpf Urine Bacteria (FEW) /hpf Urine Mucus (FEW) /hpf Ketones 0.10 (0.0-0.3) mM SARS-CoV-2 RNA (DENISSE) (NEGATIVE) 11/06/20 Range/Units 13:16 WBC (3.98-10.04) K/mm3 RBC (3.98-5.22) M/mm3 Hgb (11.2-15.7) gm/dl Hct (34.1-44.9) % MCV (79.4-94.8) fl MCH (25.6-32.2) pg MCHC (32.2-35.5) g/dl RDW Std Deviation (36.4-46.3) fL Plt Count (182-369) K/mm3 MPV (9.4-12.3) fl Neut % (Auto) (34.0-71.1) % Lymph % (Auto) (19.3-51.7) % [place] % (Auto) (4.7-12.5) % Eos % (Auto) (0.7-5.8) Baso % (Auto) (0.1-1.2) % Neut # (Auto) (1.56-6.13) K/mm3 Lymph # (Auto) (1.18-3.74) K/mm3 [place] # (Auto) (0.24-0.36) K/mm3 Eos # (Auto) (0.04-0.36) K/mm3 Baso # (Auto) (0.01-0.08) K/mm3 PT (9.7-12.0) SECONDS INR APTT (21.7-31.4) SECONDS Puncture Site ABG pH (7.35-7.45) ABG pCO2 (35.0-45.0) mmHg ABG pO2 (80.0-100.0) mmHg ABG HCO3 (22.0-26.0) meq/L ABG O2 Saturation (96.0-97.0) % ABG Base Excess (-2-2.0) Prakash Test A-a Gradient mmHg O2 Delivery Device Oxygen Flow Rate FiO2 (21.00-100.00) % Sodium (136-145) mEq/L Potassium (3.5-5.1) mEq/L Chloride (98-107) mEq/L Carbon Dioxide (21-32) mEq/L Anion Gap (5-15) BUN (7-18) mg/dL Creatinine (0.55-1.02) mg/dL Est Cr Clr Drug Dosing mL/min Estimated GFR (MDRD) (>60) mL/min BUN/Creatinine Ratio (14-18) Glucose (70-99) mg/dL Serum Osmolality (280-300) mosm/kg Lactic Acid 2.4 H* (0.4-2.0) mmol/L Calcium (8.5-10.1) mg/dL Magnesium (1.8-2.4) mg/dL Total Bilirubin (0.2-1.0) mg/dL AST (15-37) U/L ALT (14-59) U/L Alkaline Phosphatase (46-116) U/L Troponin I (0.00-0.056) ng/mL C-Reactive Protein (<1.0) mg/dL NT-Pro-B Natriuret Pep (0-125) pg/mL Total Protein (6.4-8.2) g/dl Albumin (3.4-5.0) g/dl Globulin gm/dL Albumin/Globulin Ratio (1-2) Urine Color (Yellow) Urine Appearance (Clear) Urine pH (5.0-8.0) Ur Specific Eva (1.005-1.030) Urine Protein (Negative) Urine Glucose (UA) (Negative) Urine Ketones (Negative) Urine Occult Blood (Negative) Urine Nitrite (Negative) Urine Bilirubin (Negative) Urine Urobilinogen (0.2-1.0) Ur Leukocyte Esterase (Negative) Urine RBC (0-5) /hpf Urine WBC (0-5) /hpf Ur Squamous Epith Cells (0-5) /hpf Urine Bacteria (FEW) /hpf Urine Mucus (FEW) /hpf Ketones (0.0-0.3) mM SARS-CoV-2 RNA (DENISSE) (NEGATIVE) Meds: Medications Generic Name Dose Route Start Last Admin Trade Name Freq PRN Reason Stop Dose Admin Sodium Chloride 100 mls @ 60 mls/hr 11/06/20 11:45 11/06/20 12:21 Normal Saline IV 60 mls/hr ASDIRECTED CAESAR Administration Sodium Chloride 10 ml 11/06/20 09:37 11/06/20 10:17 Sodium Chloride 0.9% 10 Ml Syringe FLUSH 10 ml ASDIRECTED PRN Administration Keep Vein Open Sodium Chloride 10 ml 11/06/20 11:36 11/06/20 12:21 Sodium Chloride 0.9% 10 Ml Syringe FLUSH 10 ml ONETIME PRN Administration Keep Vein Open Discontinued Medications Generic Name Dose Route Start Last Admin Trade Name Freq PRN Reason Stop Dose Admin Iopamidol 100 ml 11/06/20 11:36 11/06/20 12:20 Iopamidol 755 Mg/Ml 100 Ml Bottle IVPUSH 11/06/20 11:37 100 ml ONETIME ONE Administration Lorazepam 0.5 mg 11/06/20 11:17 11/06/20 11:22 Lorazepam 0.5 Mg Tab PO 11/06/20 11:18 0.5 mg ONETIME ONE Administration - Re-Assessments/Exams Free Text/Narrative Re-Assessment/Exam: 11/06/20 12:38 I ordered oxygen, EKG, CXR, and labs. Her Hgb was low at 8.3. Her PT and PTT were normal. Her pH was elevated at 7.48. Her pCO2 was low at 28.5. Her pO2 was low at 60. Her anion gap was elevated at 17.5. Her glucose was elevated at 318. Her lactic acid was elevated at 3.2. Her magnesium was low at 1.5. Her troponin was elevated at 0.365. Her CRP was elevated at 3.6. Her BNP was elevated at 2816. Her UA shows no UTI. Her ketones were normal. Hre COVID 19 was negative. I have ordered a CT of her head and CT angio of her chest. 11/06/20 14:[address] of her head looks good. The CT angio of her chest shows no pulmonary embolism. Recent postoperative changes of CABG and left atrial appendage closure. Trace residual pericardial fluid. Cardiomegaly. Small to moderate- sized layering bilateral pleural effusions with adjacent subsegmental atelectasis. I feel she does need to be admitted. We have no beds here. I called [facility] and they had no beds. I talked with Pedro in [place] and talked with the hospitalist Dr Grady and he agreed to the transfer. Departure - Departure Time of Disposition: 14:10 Disposition: DC/[facility]fer to [facility] 02 Condition: Poor Clinical Impression: Hypoxia, Bilateral pleural effusion Anemia Qualifiers: Anemia type: other cause Other causes of anemia: other cause, not classified Qualified Code(s): D64.89 - Other specified anemias - Discharge Information Referrals: PCP,None [Primary Care Provider] - Forms: ED Department Discharge Sepsis Event Note (ED) - Evaluation Sepsis Screening Result: Possible Sepsis Risk - Focused Exam Vital Signs: Vital Signs Temp Pulse Resp BP Pulse Ox 11/06/20 09:16 97.4 F 120 H 24 H 173/103 H 94 L - My Orders Last 24 Hours: My Active Orders 11/06/20 09:37 Cardiac Monitoring [RC] . DIRECTED Oxygen Therapy [RC] PRN Sodium Chloride 0.9% [Saline Flush] 10 ml FLUSH ASDIRECTED PRN Peripheral IV Insertion Adult [OM.PC] Stat 11/06/20 09:38 Peripheral IV Care [RC] . DIRECTED Chest 1V Frontal [CR] Stat 11/06/20 09:58 Blood Culture x2 Reflex Set [OM.PC] Stat 11/06/20 10:16 BLOOD CULTURE [MREF] Stat 11/06/20 10:26 BLOOD CULTURE [MREF] Stat 11/06/20 11:26 Head wo Cont [CT] Stat 11/06/20 11:27 Ang Chest [CT] Stat 11/06/20 11:36 Sodium Chloride 0.9% [Saline Flush] 10 ml FLUSH ONETIME PRN 11/06/20 11:45 Sodium Chloride 0.9% [Normal Saline] 100 ml IV ASDIRECTED - Assessment/Plan Last 24 Hours: My Active Orders 11/06/20 09:37 Cardiac Monitoring [RC] . DIRECTED Oxygen Therapy [RC] PRN Sodium Chloride 0.9% [Saline Flush] 10 ml FLUSH ASDIRECTED PRN Peripheral IV Insertion Adult [OM.PC] Stat 11/06/20 09:38 Peripheral IV Care [RC] . DIRECTED Chest 1V Frontal [CR] Stat 11/06/20 09:58 Blood Culture x2 Reflex Set [OM.PC] Stat 11/06/20 10:16 BLOOD CULTURE [MREF] Stat 11/06/20 10:26 BLOOD CULTURE [MREF] Stat 11/06/20 11:26 Head wo Cont [CT] Stat 11/06/20 11:27 Ang Chest [CT] Stat 11/06/20 11:36 Sodium Chloride 0.9% [Saline Flush] 10 ml FLUSH ONETIME PRN 11/06/20 11:45 Sodium Chloride 0.9% [Normal Saline] 100 ml IV ASDIRECTED
[2020-11-06] MEDS ORDERED: HYDROmorphone 0.5 MG/0.5 ML Syringe IVPUSH ONE (14:17)
[2020-11-06 15:30] VITALS: BP 187/102; PULSE 122
--- NOTE | 2020-11-07 08:40 | CT ---
Head CT Technique: Multiple axial sections through the brain were obtained. Intravenous contrast was not utilized. Reconstructed coronal and sagittal images were obtained. Jimmy: Prior head CT study of 06/24/15 and MRI brain of 06/25/15. Findings: Ventricles along with basal cisterns and sulci over the convexities are within normal limits for the patient's age. No abnormal parenchymal densities are seen. No evidence of intracranial hemorrhage is seen. No midline shift or mass-effect is seen. Bone window settings were reviewed. Visualized paranasal sinuses and mastoid sinuses show nothing acute. No acute calvarial abnormality is appreciated. Impression: 1. Nothing acute is appreciated on noncontrast head CT study. Diagnostic code #1 I agree with preliminary report from [facility], finalized on 11/06/20, 1:55 PM CDT, code 1
--- NOTE | 2020-11-07 08:40 | CT ---
CT chest Technique: Multiple axial sections through the chest were obtained. Intravenous contrast was utilized. Study has been performed as a pulmonary angiogram protocol. Comparison: Prior CT chest study of 10/14/20. Findings: Small to moderate sized bilateral pleural effusions are noted. There is evidence of previous sternotomy. Previous abnormality within the right atrium is not seen on current study presumably due to prior surgery. Pulmonary arteries are well opacified. No filling defects are seen to indicate pulmonary embolism. Thoracic aorta shows atherosclerotic change with no aneurysm. Mediastinum shows no adenopathy. Minimal pericardial fluid is seen. Heart is also slightly enlarged. Visualized portion of the upper abdominal structures show no discrete abnormality. Slight atelectasis is noted adjacent to the pleural effusions. Lungs otherwise are clear with no acute parenchymal change. Bone window settings were reviewed which show no acute osseous abnormality. Impression: 1. Sternotomy with probable surgery within the atria. Previous intra-atrial abnormality is no longer seen. 2. Pulmonary artery show no findings of pulmonary embolism. 3. Small to moderate sized bilateral pleural effusions with mild adjacent atelectasis. Diagnostic code #3 I agree with preliminary report from [facility], finalized on 11/06/20, 2:00 PM CDT, code 1
--- NOTE | 2020-11-07 09:54 | CR ---
Chest: Portable view of the chest was obtained. Comparison: Prior chest CT study of 10/14/20 and chest x-ray of 10/14/20. Small bilateral pleural effusions are noted. Heart is enlarged. Prior sternotomy is noted from previous cardiac surgery. Bony structures are grossly intact. Impression: 1. Bilateral pleural effusions with cardiomegaly and prior sternotomy. Diagnostic code #3
== END 2020-11-06 14:43 ==
LOC: JD.ED 09:13
DX: J90 Pleural effusion, not elsewhere classified (principal); D64.89 Other specified anemias; R09.02 Hypoxemia; R74.02 Elevation of levels of lactic acid dehydrogenase [LDH]; I10 Essential (primary) hypertension; E78.00 Pure hypercholesterolemia, unspecified; E11.9 Type 2 diabetes mellitus without complications; R00.0 Tachycardia, unspecified; Z88.6 Allergy status to analgesic agent; Z88.8 Allergy status to other drugs, medicaments and biological substances; Z79.84 Long term (current) use of oral hypoglycemic drugs; Z79.899 Other long term (current) drug therapy; Z20.822 Contact with and (suspected) exposure to COVID-19
CPT/HCPCS: 36415; 36600; 70450; 71045; 71275; 80053; 81001; 82009; 82803; 83605; 83735; 83880; 83930; 84484; 85025; 85610; 85730; 86140; 87040; 87635; 93005; 96374; 99285; A9270; J1170; Q9967; 93010; U0002

== ENCOUNTER 2021-01-24 10:13 | Emergency (ER) | payer BC ==
[2021-01-24 10:56] VITALS: BP 123/86; PULSE 63
[2021-01-24] MEDS ORDERED: Sodium Chloride 0.9% 10 ML Syringe FLUSH PRN (11:30)
--- NOTE | 2021-01-24 12:34 | EDM.PDOC ---
ED HPI GENERAL MEDICAL PROBLEM - General Chief Complaint: Respiratory Problem Stated Complaint: SOB Time Seen by Provider: 01/24/21 11:10 Source of Information: Reports: Patient, Family, RN Notes Reviewed History Limitations: Reports: No Limitations - History of Present Illness INITIAL COMMENTS - FREE TEXT/NARRATIVE: Patient is a 65-year-old female presenting to the emergency department with complaints of shortness of breath and right upper chest wall discomfort with taking a deep breath. Symptoms have been occurring for approximately last 3 days. She has no chest pain other than when she breathes deep. She also has tenderness over this area on the chest wall. 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 She had 2 strokes thereafter and had a pacemaker placed. She denies any history of blood clots. She was also seen here in November for shortness of breath and diagnosed with bilateral pleural effusions for which she had a thoracentesis completed. Last evening she had somewhat of a dry cough but denies any other respiratory complaints. She has had no fever, chills, nausea, or vomiting. They are currently on their way to [place] for a neurology appointment tomorrow. R chest/arm/axilla Pain Score (Numeric/FACES): 10 - Related Data Allergies Allergy/AdvReac Type Severity Reaction Status Date / Time ibuprofen Allergy Swelling Verified 01/24/21 10:40 metoprolol Allergy Edema Verified 01/24/21 10:40 Home Meds: Home Meds Multivitamin [Multivitamins] 1 each PO DAILY 12/30/14 [History] Rosuvastatin [Crestor] 15 mg PO DAILY 12/30/14 [History] Zolpidem [Ambien] 10 mg PO BEDTIME PRN 12/30/14 [History] Fish Oil/[employer]-3 Fatty Acids [Fish Oil] 1 tab PO DAILY 03/17/15 [History] glipiZIDE [Glipizide ER] 2.5 mg PO ASDIRECTED 04/02/20 [History] Omeprazole 20 mg PO DAILY 10/14/20 [History] carvediloL [Carvedilol] 3.125 mg PO BID 10/14/20 [History] Acetaminophen 325 mg PO QID PRN 01/24/21 [History] Apixaban [Eliquis] 5 mg PO BID 01/24/21 [History] Chromium Picolinate 1,000 mcg PO DAILY 01/24/21 [History] Cyclobenzaprine [Flexeril] 10 mg PO TID PRN 01/24/21 [History] Empagliflozin [Jardiance] 10 mg PO DAILY 01/24/21 [History] Furosemide 40 mg PO DAILY 01/24/21 [History] LORazepam [Ativan] 0.5 mg PO QID PRN 01/24/21 [History] Potassium Chloride 20 meq PO DAILY 01/24/21 [History] lisinopriL [Lisinopril] 20 mg PO DAILY 01/24/21 [History] Past Medical History HEENT History: Reports: Impaired Vision Cardiovascular History: Reports: High Cholesterol, Hypertension JAVA 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: , Other (See Below) Other JAVA DESIGNER History: 2 C-sections Musculoskeletal History: Reports: None Neurological History: Reports: TIA Other Neuro History: mini stroke 3 years ago Psychiatric History: Reports: None Endocrine/Metabolic History: Reports: Diabetes, Type II Hematologic History: Reports: Iron Deficiency - Past Surgical History HEENT Surgical History: Reports: Cataract Surgery Cardiovascular Surgical History: Reports: Other (See Below) Other Cardiovascular Surgeries/Procedures: 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 GI Surgical History: Reports: Appendectomy Endocrine Surgical History: Reports: None Musculoskeletal Surgical History: Reports: Other (See Below) Other Musculoskeletal Surgeries/Procedures:: Right Knee Surgery Social & Family History - Family History HEENT: Reports: Cataract Other HEENT Family History: mother Cardiac: Reports: Bypass Other Cardiac Family History: father OBGYN: Reports: Endocrine/Metabolic: Reports: Diabetes, type II Other Endocrine/Metabolic Family History: Mother Oncologic: Reports: Breast Other Oncologic Family History: Sister - Tobacco Use Tobacco Use Status *Q: Former Tobacco User Used Tobacco, but Quit: Yes Month/Year Tobacco Last Used: 1992 - Caffeine Use Caffeine Use: Reports: Coffee, Soda, Tea - Recreational Drug Use Recreational Drug Use: No ED ROS GENERAL - Review of Systems Review Of Systems: See Below Constitutional: Reports: No Symptoms. Denies: Fever, Chills HEENT: Reports: No Symptoms Respiratory: Reports: Shortness of Breath, Pleuritic Chest Pain, Cough (occasional dry). Denies: Wheezing Cardiovascular: Reports: No Symptoms Endocrine: Reports: No Symptoms GI/Abdominal: Reports: No Symptoms : Reports: No Symptoms Musculoskeletal: Reports: No Symptoms Skin: Reports: No Symptoms Neurological: Reports: No Symptoms Psychiatric: Reports: No Symptoms Hematologic/Lymphatic: Reports: No Symptoms Immunologic: Reports: No Symptoms ED EXAM, GENERAL - Physical Exam Exam: See Below Exam Limited By: No Limitations General Appearance: Alert, WD/WN, No Apparent Distress Respiratory/Chest: No Respiratory Distress, Lungs Clear, Normal Breath Sounds, No Accessory Muscle Use, Other (Tenderness to palpation over the right anterior upper chest.) Cardiovascular: Normal Peripheral Pulses, Regular Rate, Rhythm, No Edema, No Gallop, No JVD, No Murmur, No Rub GI/Abdominal: Normal Bowel Sounds, Soft, Non-Tender, No Organomegaly, No Distention, No Abnormal Bruit, No Mass Neurological: Alert, Oriented, CN II-XII Intact, Normal Cognition, Normal Gait, Normal Reflexes, No Motor/Sensory Deficits Psychiatric: Normal Affect, Normal Mood Skin Exam: Warm, Dry, Intact, Normal Color, No Rash #1 Interpretation EKG Date: 01/24/21 Time: 12:01 Rhythm: Other (atrial paced) Rate (Beats/Min): 61 Farber: Normal P-Wave: Present QRS: Normal ST-T: Normal QT: Normal Course - Vital Signs Last Recorded V/S: Last Vital Signs Temp 97.0 F 01/24/21 10:52 Pulse 63 01/24/21 10:52 Resp 16 01/24/21 10:52 BP 123/86 01/24/21 10:52 Pulse Ox 95 01/24/21 10:52 - Orders/Labs/Meds Orders: Active Orders 24 hr Category Date Time Status Peripheral IV Insertion Adult [OM.PC] Stat Oth 01/24/21 11:31 Ordered Labs: Laboratory Tests 01/24/21 01/24/21 01/24/21 Range/Units 11:30 11:50 11:50 WBC 6.41 (3.98-10.04) K/mm3 RBC 4.03 (3.98-5.22) M/mm3 Hgb 9.8 L (11.2-15.7) gm/dl Hct 33.3 L (34.1-44.9) % MCV 82.6 (79.4-94.8) fl MCH 24.3 L (25.6-32.2) pg MCHC 29.4 L (32.2-35.5) g/dl RDW Std Deviation 48.2 H (36.4-46.3) fL Plt Count 359 D (182-369) K/mm3 MPV 8.9 L (9.4-12.3) fl Neut % (Auto) 70.3 (34.0-71.1) % Lymph % (Auto) 21.2 (19.3-51.7) % [place] % (Auto) 6.4 (4.7-12.5) % Eos % (Auto) 1.6 (0.7-5.8) Baso % (Auto) 0.3 (0.1-1.2) % Neut # (Auto) 4.51 (1.56-6.13) K/mm3 Lymph # (Auto) 1.36 (1.18-3.74) K/mm3 [place] # (Auto) 0.41 H (0.24-0.36) K/mm3 Eos # (Auto) 0.10 (0.04-0.36) K/mm3 Baso # (Auto) 0.02 (0.01-0.08) K/mm3 D-Dimer, Quantitative 1.73 H (0.19-0.50) mg/L Sodium (136-145) mEq/L Potassium (3.5-5.1) mEq/L Chloride (98-107) mEq/L Carbon Dioxide (21-32) mEq/L Anion Gap (5-15) BUN (7-18) mg/dL Creatinine (0.55-1.02) mg/dL Est Cr Clr Drug Dosing mL/min Estimated GFR (MDRD) (>60) mL/min BUN/Creatinine Ratio (14-18) Glucose (70-99) mg/dL Calcium (8.5-10.1) mg/dL Total Bilirubin (0.2-1.0) mg/dL AST (15-37) U/L ALT (14-59) U/L Alkaline Phosphatase (46-116) U/L Troponin I (0.00-0.056) ng/mL C-Reactive Protein (<1.0) mg/dL NT-Pro-B Natriuret Pep (0-125) pg/mL Total Protein (6.4-8.2) g/dl Albumin (3.4-5.0) g/dl Globulin gm/dL Albumin/Globulin Ratio (1-2) SARS-CoV-2 RNA (DENISSE) Negative (NEGATIVE) 01/24/21 01/24/21 Range/Units 11:50 11:50 WBC (3.98-10.04) K/mm3 RBC (3.98-5.22) M/mm3 Hgb (11.2-15.7) gm/dl Hct (34.1-44.9) % MCV (79.4-94.8) fl MCH (25.6-32.2) pg MCHC (32.2-35.5) g/dl RDW Std Deviation (36.4-46.3) fL Plt Count (182-369) K/mm3 MPV (9.4-12.3) fl Neut % (Auto) (34.0-71.1) % Lymph % (Auto) (19.3-51.7) % [place] % (Auto) (4.7-12.5) % Eos % (Auto) (0.7-5.8) Baso % (Auto) (0.1-1.2) % Neut # (Auto) (1.56-6.13) K/mm3 Lymph # (Auto) (1.18-3.74) K/mm3 [place] # (Auto) (0.24-0.36) K/mm3 Eos # (Auto) (0.04-0.36) K/mm3 Baso # (Auto) (0.01-0.08) K/mm3 D-Dimer, Quantitative (0.19-0.50) mg/L Sodium 136 (136-145) mEq/L Potassium 4.2 (3.5-5.1) mEq/L Chloride 98 (98-107) mEq/L Carbon Dioxide 26 (21-32) mEq/L Anion Gap 16.2 H (5-15) BUN 27 H (7-18) mg/dL Creatinine 1.5 H (0.55-1.02) mg/dL Est Cr Clr Drug Dosing 31.34 mL/min Estimated GFR (MDRD) 35 (>60) mL/min BUN/Creatinine Ratio 18.0 (14-18) Glucose 181 H (70-99) mg/dL Calcium 9.8 (8.5-10.1) mg/dL Total Bilirubin 0.2 (0.2-1.0) mg/dL AST 19 (15-37) U/L ALT 27 (14-59) U/L Alkaline Phosphatase 82 (46-116) U/L Troponin I < 0.017 (0.00-0.056) ng/mL C-Reactive Protein 13.6 H* (<1.0) mg/dL NT-Pro-B Natriuret Pep 474 H (0-125) pg/mL Total Protein 8.4 H (6.4-8.2) g/dl Albumin 3.7 (3.4-5.0) g/dl Globulin 4.7 gm/dL Albumin/Globulin Ratio 0.8 L (1-2) SARS-CoV-2 RNA (DENISSE) (NEGATIVE) Meds: Medications Discontinued Medications Generic Name Dose Route Start Last Admin Trade Name Freq PRN Reason Stop Dose Admin Sodium Chloride 100 mls @ 60 mls/hr 01/24/21 12:45 01/24/21 12:50 Normal Saline IV 60 mls/hr ASDIRECTED CAESAR Administration Sodium Chloride 500 mls @ 999 mls/hr 01/24/21 12:46 01/24/21 13:04 Normal Saline IV 01/24/21 13:16 999 mls/hr NOW STA Administration Iopamidol 100 ml 01/24/21 12:44 01/24/21 12:50 Iopamidol 755 Mg/Ml 100 Ml Bottle IVPUSH 01/24/21 12:45 100 ml ONETIME ONE Administration Sodium Chloride 10 ml 01/24/21 11:30 01/24/21 11:56 Sodium Chloride 0.9% 10 Ml Syringe FLUSH 10 ml ASDIRECTED PRN Administration Keep Vein Open Sodium Chloride 10 ml 01/24/21 12:44 01/24/21 12:50 Sodium Chloride 0.9% 10 Ml Syringe FLUSH 01/24/21 12:45 10 ml ONETIME ONE Administration - Re-Assessments/Exams Free Text/Narrative Re-Assessment/Exam: Patient is a 65-year-old female presenting to the emergency department complaints of a 3-day history of shortness of breath and right-sided chest pain with deep breathing. She has a history significant for myxoma with open heart surgery for resection, strokes, and pacemaker. She also history of bilateral pleural effusions with thoracentesis in November. On arrival to ER, oxygen saturation was 95% on room air, however since resting, oxygen saturation is 90 to 92% with occasional desaturations to 88%. On exam, lung sounds are clear to auscultation bilaterally. Deep breathing elicits obvious pain response. She does have tenderness to palpation over the right upper chest wall. I have ordered cardiac work-up including blood work, EKG, chest x-ray. 01/24/21 12:52 Hematology significant for hemoglobin low at 9.8, D-dimer significantly elevated at 1.73, anion gap 16.2, BUN 27, creatinine 1.5, CRP 13.6, proBNP 474. Troponin is undetectably low. Given patient's symptoms of chest discomfort shortness of breath, significant elevation in D-dimer, I do feel CT angiogram of the chest is warranted. Her kidney function is decreased with a BUN of 27 creatinine 1.5, however she does appear to be slightly dehydrated as well. I will give her a 500 mill bolus of normal saline and proceed with CT angiogram of the chest. 01/24/21 14:01 CT angiogram of the chest impression as follows: 1. Slight thickening along the posterior right chest which is believed to be chronic. 2. No findings of pulmonary embolism. 3. Prior sternotomy for cardiac surgery. 4. No acute abnormalities appreciated on CT study of the chest. Results discussed with patient and her . Given the localized tenderness over the chest wall, she is likely experiencing inflammation within the chest wall. She has on Eliquis, therefore we will forego treatment with prednisone or NSAIDs at this time. Recommend that she continue Tylenol as well as intermittent heat. If symptoms fail to improve over the next few days, she should follow-up in the clinic or return to ER for worsening symptoms. They are in agreement with this plan. Discharge instructions as documented. Departure - Departure Time of Disposition: 14:03 Disposition: Home, Self-Care 01 Condition: Good Clinical Impression: Chest wall pain, Shortness of breath - Discharge Information *PRESCRIPTION DRUG MONITORING PROGRAM REVIEWED*: No *COPY OF PRESCRIPTION DRUG MONITORING REPORT IN PATIENT RADHAMES: No Instructions: Shortness of Breath, Adult, Fkna-mg-Taiv, Chest Wall Pain Referrals: Sandee Diehl CONVEYOR TECHNICIAN [Primary Care Provider] - Forms: ED Department Discharge Additional Instructions: You were seen in the emergency department today for shortness of breath and right-sided chest wall discomfort with deep breathing. Work-up included blood work, EKG, chest x-ray, and CT angiogram of your chest. Your cardiac and respiratory work-up were found to be normal. You are not having heart attack and you do not have a blood clot in your lungs. There is no evidence of any pleural effusions either. I recommend that you continue Tylenol for the discomfort. You may apply heat intermittently over the area of discomfort as well. If you should experience any worsening symptoms or you develop any new symptoms of concern, please return to the emergency department. Sepsis Event Note (ED) - Evaluation Sepsis Screening Result: No Definite Risk - Focused Exam Vital Signs: Vital Signs Temp Pulse Resp BP Pulse Ox 01/24/21 10:52 97.0 F 63 16 123/86 95 - My Orders Last 24 Hours: My Active Orders 01/24/21 11:31 Peripheral IV Insertion Adult [OM.PC] Stat - Assessment/Plan Last 24 Hours: My Active Orders 01/24/21 11:31 Peripheral IV Insertion Adult [OM.PC] Stat
[2021-01-24] MEDS ORDERED: Iopamidol 755 Mg/ML 100 ML Bottle IVPUSH ONE (12:44)
[2021-01-24] MEDS ORDERED: Sodium Chloride 0.9% 10 ML Syringe FLUSH ONE (12:44)
[2021-01-24] MEDS ORDERED: Sodium Chloride 0.9% 100 ML IV SCH (12:45)
[2021-01-24] MEDS ORDERED: Sodium Chloride 0.9% 500 ML IV STA (12:46)
--- NOTE | 2021-01-24 12:47 | CR ---
Chest: PA and lateral views of the chest were obtained. Comparison: Prior chest x-ray of 11/06/20. Heart is mildly enlarged. Sternotomy is noted. Pacemaker is present. Prosthetic heart valve is seen. Lungs are clear with no acute parenchymal change. Bony structures show nothing acute. Impression: 1. Slight cardiomegaly with prior sternotomy for heart valve. 2. Pacemaker is noted. Diagnostic code #2
--- NOTE | 2021-01-24 13:18 | CT ---
CT chest Technique: Multiple axial sections were obtained from above the lung apices inferiorly through the lung bases. Intravenous contrast was utilized. Study has been performed as a pulmonary angiogram protocol. Comparison: Prior CT chest study of 11/06/20. Pulmonary arteries are well opacified. No filling defects are seen to indicate pulmonary embolism. Thoracic aorta shows no aneurysm with mild atherosclerotic calcification. Prior sternotomy is noted for cardiac surgery. Pacemaker is noted. Visualized portions of the upper abdomen show nothing acute. Slight thickening is noted along the posterior right chest. Lungs otherwise are clear with no acute parenchymal change. Bone window settings were reviewed which show no acute osseous abnormality. Impression: 1. Slight thickening along the posterior right chest which is believed to be chronic. 2. No findings of pulmonary embolism. 3. Prior sternotomy for cardiac surgery. 4. No acute abnormality is appreciated on CT study of the chest. Diagnostic code #2
== END 2021-01-24 14:22 | disposition home or self-care (01) ==
LOC: JD.ED 10:13
DX: R07.89 Other chest pain (principal); R06.02 Shortness of breath; E66.9 Obesity, unspecified; E11.9 Type 2 diabetes mellitus without complications; Z68.25 Body mass index [BMI] 25.0-25.9, adult; Z88.8 Allergy status to other drugs, medicaments and biological substances; Z86.73 Personal history of transient ischemic attack (TIA), and cerebral infarction without residual deficits; Z79.01 Long term (current) use of anticoagulants; Z79.899 Other long term (current) drug therapy; Z20.822 Contact with and (suspected) exposure to COVID-19
CPT/HCPCS: 36415; 71046; 71275; 80053; 83880; 84484; 85025; 85379; 86140; 87635; 93005; 99285; J7030; Q9967; U0002

== ENCOUNTER 2022-04-05 12:52 | Inpatient (IN) | payer MEDICARE, OTHER ==
[2022-04-05] MEDS ORDERED: Sodium Chloride 0.9% 10 ML Syringe FLUSH PRN (13:18)
[2022-04-05] MEDS ORDERED: Iopamidol 755 Mg/ML 100 ML Bottle IVPUSH ONE (13:18)
[2022-04-05] MEDS ORDERED: Sodium Chloride 0.9% 100 ML IV SCH (13:30)
[2022-04-05] MEDS ORDERED: Ondansetron 4 MG/2 ML SDV IV PRN (15:48)
[2022-04-05] MEDS ORDERED: Acetaminophen 325 MG Tab PO PRN (15:48)
[2022-04-05] MEDS ORDERED: Potassium Chloride 20 MEQ Tab.ER PO ONE (16:55)
[2022-04-05] MEDS ORDERED: Zolpidem 10 MG Tab PO PRN (16:57)
[2022-04-05] MEDS: Clopidogrel 75 MG Tab PO SCH (18:37)
[2022-04-05] MEDS: Insulin Lispro 100 Unit/ML 3 ML KwikPen SUBCUT SCH ×2 (18:37→21:24)
[2022-04-05] MEDS: Carvedilol 6.25 MG Tab PO SCH (20:29)
[2022-04-05] MEDS ORDERED: Zolpidem 10 MG Tab PO SCH (21:00)
[2022-04-06 07:03] LABS: HEMOGLOBIN A1C 7.3 %
[2022-04-06] MEDS: Insulin Lispro 100 Unit/ML 3 ML KwikPen SUBCUT SCH ×4 (07:48→21:59)
[2022-04-06] MEDS ORDERED: Enoxaparin 40 MG/0.4 ML Syringe SUBCUT SCH (09:00)
[2022-04-06] MEDS: Carvedilol 6.25 MG Tab PO SCH ×2 (09:18→21:55)
[2022-04-06] MEDS: Aspirin 81 MG Tab.EC PO SCH (09:19)
[2022-04-06] MEDS: Furosemide 40 MG Tab PO SCH (09:19)
[2022-04-06] MEDS: Clopidogrel 75 MG Tab PO SCH (09:19)
[2022-04-07] MEDS: Furosemide 40 MG Tab PO SCH (09:17)
[2022-04-07] MEDS: Carvedilol 6.25 MG Tab PO SCH (09:17)
[2022-04-07] MEDS: Aspirin 81 MG Tab.EC PO SCH (09:17)
[2022-04-07] MEDS: Clopidogrel 75 MG Tab PO SCH (09:17)
[2022-04-07] MEDS: Insulin Lispro 100 Unit/ML 3 ML KwikPen SUBCUT SCH (09:18)
[2022-04-07 13:38] VITALS: BP 117/65; PULSE 88
== END 2022-04-07 13:45 | disposition home or self-care (01) | DRG 66 ==
LOC: JD.ED 12:52 → JD.MS 15:44
PROVIDERS: ADMIT Internal Medicine; ATTEND Internal Medicine
DX: I63.412 Cerebral infarction due to embolism of left middle cerebral artery (principal); I12.9 Hypertensive chronic kidney disease with stage 1 through stage 4 chronic kidney disease, or unspecified chronic kidney disease; E11.9 Type 2 diabetes mellitus without complications; I10 Essential (primary) hypertension; N18.32 Chronic kidney disease, stage 3b; E11.22 Type 2 diabetes mellitus with diabetic chronic kidney disease; H54.7 Unspecified visual loss; Z79.899 Other long term (current) drug therapy; E78.00 Pure hypercholesterolemia, unspecified; E61.1 Iron deficiency; R94.31 Abnormal electrocardiogram [ECG] [EKG]; I69.322 Dysarthria following cerebral infarction; E87.6 Hypokalemia; R29.702 NIHSS score 2; Z79.01 Long term (current) use of anticoagulants; Z95.0 Presence of cardiac pacemaker; Z79.84 Long term (current) use of oral hypoglycemic drugs; Z79.82 Long term (current) use of aspirin; Z79.02 Long term (current) use of antithrombotics/antiplatelets; Z88.6 Allergy status to analgesic agent; Z88.8 Allergy status to other drugs, medicaments and biological substances; Z86.73 Personal history of transient ischemic attack (TIA), and cerebral infarction without residual deficits; Z98.49 Cataract extraction status, unspecified eye; Z90.49 Acquired absence of other specified parts of digestive tract; Z98.890 Other specified postprocedural states
CPT/HCPCS: 36415; 70450; 70450-26; 70496; 70496-26; 70498; 70498-26; 71045; 71045-26; 80048; 80053; 80061; 82947; 83036; 84484; 85025; 85027; 85610; 85730; 92610-GN; 93307; 97161-GP; 97166-GO; 99285; A9270-GY; J1650; J1815; J3490; Q9967